=== PATIENT | male | born 1980 | race Caucasian/White ===

== ENCOUNTER → 2019-10-15 12:42 | Outpatient (CLI) | payer BC, SELFPAY ==
--- NOTE | 2019-10-15 12:43 | RAD_ITS ---
STUDY: X-RAY - LEFT KNEE REASON FOR EXAM: Male, 39 years old. Knee pain after numerous injuries TECHNIQUE: 4 view(s) of the knee. COMPARISON: None. FINDINGS: Normal visualized distal femur. Normal visualized proximal tibia and fibula. Normal proximal tibiofibular articulation. Normal medial femorotibial compartment. Normal lateral femorotibial compartment. Normal patellofemoral articulation. The soft tissue structures are unremarkable. RAD/Knee 4 or More Views IMPRESSION: Normal x-ray examination of the knee. Electronically Signed: Carlos Ren, at 15:12 EDT , Service support ,
== END ==
PROVIDERS: PCP Family Medicine; Referring Provider Physician Assistant; Visit Provider Physician Assistant
DX: M25.562 Pain in left knee (principal)
CPT/HCPCS: 73564

== ENCOUNTER → 2020-02-07 | Outpatient (CLI) | payer BC, SELFPAY ==
[2020-02-07 16:48] LABS: Pathologist Comment May follow
[2020-02-07 18:05] LABS: Body Fluid QC Type(s) BF3Q; CRYSTALS, BODY FLUID See PATH REV
[2020-02-07 18:10] LABS: Synovial Fld Mononuclear WBC % 99.2 %; Synovial Fld Polynuclear WBC # 0.004 10^3/uL; Synovial Fld Polynuclear WBC % 0.8 %
[2020-02-07 18:50] LABS: AUTO B FLUID DILUENT BKGD CT WBC <0.1 RBC <0.01 (W<.1,R<.01); Appearance /Synovial Fluid Sl Cl (CLEAR); Color / Synovial Fluid Yellow (Pale Yellow); Source / Synovial Fluid NG; Source- Body Fluid SYNOVIAL
[2020-02-07 18:51] LABS: RBC /Synovial Fluid 9 /mm3 (0)
[2020-02-07 19:10] LABS: Lymph 4 %; Monocyte /Synovial Fluid 93 %; Neutrophil 3 % (0-25)
[2020-02-08 13:58] LABS: Pathologist Review Reviewed
[2020-02-09 13:41] LABS: GLUCOSE, SYNOVIAL FLUID 110 mg/dL (.)
== END | disposition home or self-care (01) ==
PROVIDERS: PCP Family Medicine; Referring Provider Physician Assistant; Visit Provider Physician Assistant
DX: M25.461 Effusion, right knee (principal)
CPT/HCPCS: 82945; 84157; 87070; 87075; 87205; 89050; 89051; 89060

== ENCOUNTER → 2021-01-17 12:52 | Outpatient (CLI) | payer BC, SELFPAY | PROVIDERS: PCP Family Medicine; Referring Provider Family Medicine; Visit Provider Family Medicine | DX: U07.1 COVID-19 (principal) | CPT/HCPCS: 87635; C9803; U0005; U0003 ==

== ENCOUNTER 2021-03-01 16:03 | Outpatient (RCR) | payer BC, SELFPAY ==
--- NOTE | 2021-03-01 17:05 | HP.PTEVAL_ITS ---
Patient's Visit Information FERNANDO TOUSSAINT is a 40 year old M referred to Physical Therapy by EDITH Mina with a diagnosis of L knee patellofemoral symptoms quad weakness.. Date of Evaluation: 03/01/21 Physical Therapist: Vishnu Fry, ROGERIOT, OCS, CSCS - Visit Plan Frequency: 2x /Week Duration: 4-6 Weeks Plan: 2x/week for 4 weeks for: 1. teach home based quad, HS and hip strength and core strength with pics to I. 2. stretch quad(rollout) and HS and teach for HEP. 3. Finish with TENs with MH to monitor effectiveness for possible home unit. Encourage activitiy modification to limit pain. - Subjective L knee scoped twice and fractured femur from bad accident 20 yrs ago. had multiple treatments and cortisone and not feeling much better. Seen Dr. Mathew and had gels from [facility]. Knees pop and crack. Pain is not worsening but I am still in pain. had many MRIs. it grinds on steps and hurts when he tries. Losing cartilage in R knee and none in left knee left. has no muscle tone in either quad. L knee pain 6/10 intermittently and might pop for no reason. R one is not as bad. Got prescription but not sure what it is. Maybe antiinflammatory. Sleep is not great and needs pillow between knees. Employed : 12 hours day in [employer]se[employer] on concrete standing all day [employer]. Some times worse after work. Intermittently bad for days at a time. Enjoys hiking and 4 whjeelers. Basic at home are getting done. 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 No regular knee specific ex. Wears 12 dollar brace. - Pain L knee pain. Pain Intensity (Out of 10): 0 - Objective Walks normal and I into PT. Steps reciprocal with some tightness and noise in L knee up and down. Unable to fucntionally step up with L two at a time. Marching and toe walk and heel walk and butt kicks without problems today. patella and joint line not tender. Unable to do normal LAQ on L as he has to ext rotate hip and shift pelvis to avoid pain stabbing in front o medial L knee. patella move well. Quad muscle tight L >R, HS mod tight B at -35 90/90 test. reflexes 2/3 patella and achilles B. Sensation LE WNL to gross light touch. Strength hips: R 4 and L abd 3=, ext 3 adn flexion 4. knee ext L 3+ and R 4+, HSC L 4 and R 4+. ankles 5/5. - bounce home, - varus and valgus, + patellar grind. - pivot shift. - Balance/Special Test Scores Lower Extremity Functional Score: 19 - Goals Goal 1:: i approp jail strength adn stretching for legs to minimzie pain. Goal Time Frame: 4-6 Weeks Goal 2:: Pt know benefits of TENs unit for pain control Goal Time Frame: 4-6 Weeks Goal 3:: Sit and straighten knee without pain Goal Time Frame: 4-6 Weeks Goal 4:: Pt feel 50% better inoverall pain levels and function. Goal Time Frame: 4-6 Weeks - Rehabilitation Potential Physical Therapy Diagnosis: L knee pain with cartilage problems and weakness causing functional deficits. Rehabilitation Potential: Questionable - Anticipated Interventions Patient/Client Instruction: Educate patient on: Condition, Plan of Care For the Purpose of:: To decrease pain, To increase ROM, To improve muscle performance and motor function, To increase tolerance to activity/condition/position Therapeutic Exercise to Include: Strength training, Flexibilty training, Passive ROM, Active ROM For the Purpose of:: To decrease pain, To increase ROM, To improve muscle performance and motor function, To increase tolerance to activity/condition/position TENS: Yes Cryotherapy (ice pack, ice massage): Yes For the Purpose of:: To decrease pain Thank you for the opportunity to evaluate your patient. For Medicare and Medicare HMO plans, please review the plan of care and approve it. It will need to be FAXED BACK to us at [phone] for Medicare purposes. For Medicare only, by signing this I certify the plan of care. Please let me know if there are questions or concerns regarding this plan of care. Physician Signature: Date:
--- NOTE | 2021-05-16 11:12 | HP.PT.NRP ---
FERNANDO TOUSSAINT was seen in my office for initial evaluation on 03/01/21. The following Plan of Care was established for this patient: Initial Frequency: 2x /Week Initial Duration: 4-6 Weeks Patient/Client Instruction: Educate patient on: Condition, Plan of Care For the Purpose of:: To decrease pain, To increase ROM, To improve muscle performance and motor function, To increase tolerance to activity/condition/position Therapeutic Exercise to Include: Strength training, Flexibilty training, Passive ROM, Active ROM For the Purpose of:: To decrease pain, To increase ROM, To improve muscle performance and motor function, To increase tolerance to activity/condition/position TENS: Yes Cryotherapy (ice pack, ice massage): Yes For the Purpose of:: To decrease pain This patient was last seen in our office 03/01/21. Pertinent comments regarding their Physical therapy will appear below: Pt seen for initial evaluation and POC established. PT did not schedule or attend any further visits. at this point, it has been over two months and I will discontinue due to nonattendance. At this point I will be discontinuing this patient from physical therapy. I would be happy to see this patient again in the future if found appropriate by the physician. Thank you! Vishnu Fry, DPT, OCS, CSCS Balance/Gait/Functional tests - Balance/Special Test Scores Lower Extremity Functional Score: 19
== END 2021-03-01 19:00 | disposition home or self-care (01) ==
LOC: PT 16:03
PROVIDERS: PCP Family Medicine; Referring Provider Physician Assistant; Visit Provider Physician Assistant
DX: R53.1 Weakness (principal); M22.2X2 Patellofemoral disorders, left knee
CPT/HCPCS: 97162

== ENCOUNTER → 2021-08-10 | Outpatient (CLI) | payer BC, SELFPAY ==
--- NOTE | 2021-08-10 13:25 | RAD_ITS ---
STUDY: X-RAY - ORBITS REASON FOR EXAM: Male, 41 years old. PRE MRI TECHNIQUE: 2 view(s) of the orbits were obtained. COMPARISON: None. FINDINGS: Normal bilateral orbits without a metallic orbital foreign body. Normal visualized facial bones. Normal paranasal sinuses. The soft tissue structures are unremarkable. RAD/Orbits for Foreign Body IMPRESSION: No demonstrated metallic orbital foreign body. The patient is cleared for an MRI examination. Electronically Signed: Carlos Ren MD at 14:33 EDT ,
== END | disposition home or self-care (01) ==
LOC: RAD 13:23
PROVIDERS: PCP Family Medicine; Referring Provider Orthopaedic Surgery; Visit Provider Orthopaedic Surgery
DX: Z01.818 Encounter for other preprocedural examination (principal)
CPT/HCPCS: 70030

== ENCOUNTER → 2021-08-29 | Outpatient (CLI) | payer BC, SELFPAY ==
[2021-08-29 11:21] LABS: Erythrocyte Sedimentation Rate 2 mm/hr (0-20)
[2021-08-29 11:22] LABS: Hematocrit 45.2 % (40-54); Hemoglobin 15.3 g/dL (13.0-16.5); Mean Corp Hgb Conc 33.8 g/dL (32-36); Mean Corpuscular Hgb 30.4 pg (27.0-32.0); Mean Corpuscular Volume 89.9 fL (80-94); Mean Platelet Vol. 9.3 fl (6.2-12.0); Platelet Count 390 K/mm3 (150-450); RBC Distribution Width CV 12.5 % (11.6-14.6); Red Blood Count 5.03 M/mm3 (4.6-6.2); White Blood Count 6.3 K/mm3 (4.4-11.0)
[2021-08-29 11:49] LABS: CRP < 2.90 mg/L (0.0-3.0)
[2021-08-29 11:53] LABS: Rheumatoid Factor < 10.0 IU/mL (<15)
[2021-08-31 08:29] LABS: ANTINUCLEAR ANTIBODIES DIRECT Negative (Negative)
[2021-09-07 17:27] LABS: HLA B27 Positive (.)
== END | disposition home or self-care (01) ==
LOC: LAB 09:49
PROVIDERS: PCP Family Medicine; Visit Provider Orthopaedic Surgery
DX: M17.12 Unilateral primary osteoarthritis, left knee (principal); M06.8A Other specified rheumatoid arthritis, other specified site; M25.562 Pain in left knee
CPT/HCPCS: 36415; 81374; 85027; 85652; 86038; 86140; 86431

== ENCOUNTER → 2021-10-10 | Outpatient (CLI) | payer BC, SELFPAY ==
[2021-10-10 18:04] LABS: Absolute Lymphocyte Count 2.39 X10^3/uL (0.83-4.51); Absolute Neutrophil Count 5.7 X10^3/uL (2.0-7.7); Basophil# 0.05 X10^3/uL; Basophil% 0.6 % (0-1); Eosinophil# 0.11 X10^3/uL; Eosinophils% 1.2 % (0-5); Hematocrit 43.6 % (40-54); Hemoglobin 15.2 g/dL (13.0-16.5); Lymphocyte # 2.39 X10^3/ul (0.83-4.51); Lymphocyte % 26.5 % (19-41); Mean Corp Hgb Conc 34.9 g/dL (32-36); Mean Corpuscular Hgb 30.6 pg (27.0-32.0); Mean Corpuscular Volume 87.9 fL (80-94); Mean Platelet Vol. 9.7 fl (6.2-12.0); Monocyte# 0.72 X10^3/uL; NRBC Flagged by Analyzer 0 % (0-5); Neutrophil # 5.74 X10^3/uL (2.7-7.7); Neutrophil % 63.5 % (47-70); Platelet Count 376 K/mm3 (150-450); RBC Distribution Width SD 38.8 fl (35.1-43.9); Red Blood Count 4.96 M/mm3 (4.6-6.2)
[2021-10-10 18:40] LABS: ALB/GLOB Ratio 1.1 RATIO (0.9-2.4); AST(SGOT) 12 U/L (15-37); Alanine Aminotransfer ALT/SGPT 29 U/L (16-61); Alkaline Phosphatase 57 U/L (45-117); Anion Gap 7 (5-15); BUN 8 mg/dL (7-18); BUN/Creat Ratio 9.4 RATIO (10-20); Calcium,Total 9.1 mg/dL (8.5-10.1); Chloride 106 mmol/L (98-107); Creatinine, Serum 0.85 mg/dL (0.70-1.30); EST Glomerular Filtration Rate 105 mL/min (>60); Est Glom Filt Rate - Afr Amer 127 mL/min (>60); Globulin 3.6 g/dL (2.2-4.2); Glucose 108 mg/dL (74-106); Potassium 3.1 mmol/L (3.5-5.1); Protein, Total 7.6 g/dL (6.4-8.2); Rheumatoid Factor < 10.0 IU/mL (<15); Sodium Level 140 mmol/L (136-145)
[2021-10-11 08:54] LABS: Hepatitis B Surface Antibody Non-Reactive; Hepatitis B Surface Antigen Non-Reactive (Nonreactive); Hepatitis C Antibody Non-Reactive (Nonreactive)
[2021-10-13 08:22] LABS: CCP IgG Antibodies 6 units (0-19)
== END | disposition home or self-care (01) ==
LOC: MTLAB 15:46
PROVIDERS: PCP Family Medicine; Referring Provider Internal Medicine Rheumatology; Visit Provider Internal Medicine Rheumatology
DX: M06.4 Inflammatory polyarthropathy (principal); M17.12 Unilateral primary osteoarthritis, left knee; I10 Essential (primary) hypertension; G43.909 Migraine, unspecified, not intractable, without status migrainosus; J30.2 Other seasonal allergic rhinitis; F41.9 Anxiety disorder, unspecified
CPT/HCPCS: 36415; 80053; 85025; 86200; 86431; 86706; 86803; 87340

== ENCOUNTER → 2022-05-01 | Outpatient (CLI) | payer OTHER, SELFPAY ==
[2022-05-01 18:45] LABS: HIV - WCH Non-Reactive (Nonreactive); Syphilis Antibodies Non-reactive
[2022-05-03 05:07] LABS: HEPATITIS B SURFACE AG Negative (Negative); Hep C Antibodies 0.1 s/co ratio (0.0-0.9); Hepatitis A IgM Antibody Negative (Negative); Hepatitis B Core AB IgM Negative (Negative)
== END | disposition home or self-care (01) ==
LOC: LAB 17:00
PROVIDERS: PCP Family Medicine; Visit Provider Nurse Practitioner Family
DX: Z11.3 Encounter for screening for infections with a predominantly sexual mode of transmission (principal)
CPT/HCPCS: 36415; 80074; 86703; 86780

== ENCOUNTER 2022-05-31 17:08 | Emergency (ER) | payer OTHER, SELFPAY ==
[2022-05-31 17:10] VITALS: BP 164/114; PULSE 87; TEMP 36.8; O2SAT 98; BMI 24.4
--- NOTE | 2022-05-31 18:59 | US_ITS ---
STUDY: SCROTUM ULTRASOUND REASON FOR EXAM: Male, 41 years old. Pain/ swelling on rt after recent vasectomy TECHNIQUE: Ultrasound evaluation of the scrotum was performed with color Doppler and static alfredo-scale imaging. COMPARISON: None. FINDINGS: RIGHT TESTICLE INTRATESTICULAR: There is a normal size of the right testicle. The right testicle measures 5x3.7 cm. There is a homogenous echotexture. There is normal arterial and normal venous vascularity. There is no demonstrated right testicular mass or cyst. EXTRATESTICULAR: The epididymis is normal in size. The epididymis head measures 1.5x1.2 cm. There is normal vascularity of the epididymis. There is no demonstrated epididymal cystic structure. There is a moderate size hydrocele. There is no demonstrated varicocele. There are dilated tubular structures near the right testicle which is likely a dilated vas deferens. LEFT TESTICLE INTRATESTICULAR: There is diffuse enlargement of the left testicle. The left testicle measures 5.1x2.8 cm. There is a homogenous echotexture. There is normal arterial and normal venous vascularity. There is no demonstrated left testicular mass or cyst. EXTRATESTICULAR: The epididymis is normal in size. The epididymis head measures .8x.5 cm. There is normal vascularity of the epididymis. There is no demonstrated epididymal cystic structure. There is no demonstrated hydrocele. There is no demonstrated varicocele. There is no demonstrated extratesticular mass or cyst. US/Testicular with Arterial Flow IMPRESSION: There are no acute findings of the bilateral testicles without evidence for torsion. There are dilated tubular structures near the right testicle which is likely a dilated vas deferens. Moderate right hydrocele. Electronically Signed: Mc Johnson MD at 21:13 EST Reading Location ID and State: [facility] / [place] , Service support ,
[2022-05-31] MEDS: Morphine 4 MG/ML Syringe IV (19:21)
[2022-05-31 19:28] LABS: Absolute Lymphocyte Count 2.13 X10^3/uL (0.83-4.51); Absolute Neutrophil Count 5.8 X10^3/uL (2.0-7.7); Basophil# 0.08 X10^3/uL; Basophil% 0.8 % (0-1); Hematocrit 42.7 % (40-54); Hemoglobin 14.2 g/dL (13.0-16.5); Lymphocyte # 2.13 X10^3/ul (0.83-4.51); Lymphocyte % 21.5 % (19-41); Mean Corp Hgb Conc 33.3 g/dL (32-36); Mean Corpuscular Hgb 30.2 pg (27.0-32.0); Mean Corpuscular Volume 90.9 fL (80-94); Monocyte# 1.63 X10^3/uL; Monocyte% 16.5 % (0-10); NRBC Flagged by Analyzer 0 % (0-5); Neutrophil # 5.78 X10^3/uL (2.7-7.7); Neutrophil % 58.5 % (47-70); POSITIVE DIFFERENTIAL YES; Platelet Count 397 K/mm3 (150-450); RBC Distribution Width CV 12.4 % (11.6-14.6); RBC Distribution Width SD 41.1 fl (35.1-43.9); White Blood Count 9.9 K/mm3 (4.4-11.0)
[2022-05-31 19:32] LABS: Differential Indicated SCAN CRITERIA MET
[2022-05-31 19:42] LABS: Anion Gap 6 (5-15); BUN 11 mg/dL (7-18); BUN/Creat Ratio 13.8 RATIO (10-20); Chloride 105 mmol/L (98-107); EST Glomerular Filtration Rate 113 mL/min (>60); Est Glom Filt Rate - Afr Amer 137 mL/min (>60); Estimated Creatinine Clearance 133.38 ml/min; Glucose 107 mg/dL (74-106); Potassium 3.6 mmol/L (3.5-5.1); Sodium Level 138 mmol/L (136-145)
[2022-05-31 19:49] LABS: Bacteria 0 SEEN /hpf (None Seen); Mucous, Urine 0 SEEN /hpf (<or=2+); Red Blood Cells-Urine 0 SEEN /hpf (0-5); Squamous Epithelial Cells - UA 0 SEEN /hpf (0-5); White Blood Cells 0 SEEN /hpf (0-5)
[2022-05-31 19:55] LABS: Differential Comment SCANNED
[2022-05-31 20:14] LABS: Color, Urine Yellow (Yellow); Glucose, Dipstick Normal (Normal); Ketone-Dipstick Negative (Negative); Leukocyte Esterase-Dipstick Negative /ul (Negative); Nitrite-Dipstick Negative (Negative); Occult Blood-Urine Negative /ul (Negative); Protein-Dipstick Negative (Negative); Specific Gravity, Urine 1.015 (1.002-1.030); Urine Bilirubin Dipstick Negative (Negative); Urine Clarity Clear (Clear); Urine Urobilinogen Normal (Normal); Urine pH 6.5 (5.0 - 8.0)
--- NOTE | 2022-05-31 22:10 | EDS_ITS ---
HPI History of Present Illness Chief Complaint: General Illness Informant: patient Onset/Context/Timing Onset: Days (4) Context: Gradual Onset Timing: Continuous Quality: Sharp Location: Right testicle and right groin Worsened by: Palpation and certain movements Relieved by: Nothing Narrative Narrative: Patient presents with right testicular pain that has been getting progressively worse over the past 4 days. Patient states he is currently on an antibiotic for an infection. Patient had a recent facetectomy on 05/09/2022. Patient states he is taking an antibiotic 4 times daily for the past 2 days. Patient denies any discharge or drainage. Patient describes his pain as sharp. Patient states it is constant. Patient states it is in the right testicle and right groin area. Patient denies any fevers or chills. Patient denies any dysuria or hematuria. PFSH PFSH Home Medications acetaminophen 325 mg tablet (Tylenol) 325 mg PO ONCE PRN 06/04/17 [History Last Taken Unknown] calcium carbonate 500 mg calcium (1,250 mg) chewable tablet (Calcium 500) 500 mg PO BID 06/04/17 [History Last Taken Unknown] multivitamin 1 tab PO QAM 06/04/17 [History Last Taken Unknown] meloxicam 15 mg tablet 15 mg PO DAILY #30 tabs 02/23/21 [Rx Last Taken Unknown] amoxicillin 875 mg-potassium clavulanate 125 mg tablet 875 mg PO Q12H #20 TABLETS 05/31/22 [Rx Last Taken Unknown] oxycodone-acetaminophen 5 mg-325 mg tablet 1 tab PO Q6H PRN PRN Pain 3 days #12 TABLETS 05/31/22 [Rx Last Taken Unknown] Allergy/AdvReac Type Severity Reaction Status Date / Time No Known Allergies Allergy Verified 05/31/22 17:13 Family History Father Diabetes Cirrhosis of liver Surgical History (Updated 05/31/22 @ 22:[address] Vishnu Shields DO) History of tonsillectomy Hx of vasectomy S/P left knee arthroscopy Social History Smoking Status: Never smoker ROS ROS ED Constitutional Constitutional ED: Denies chills or fever(s) Eyes Eyes: Denies blurry vision or change in vision ENT ENT ED: Denies rhinorrhea or sore throat Cardiovascular Cardiovascular: Denies chest pain or palpitations Respiratory/Chest Respiratory/Chest: Denies cough or dyspnea Gastrointestinal Gastrointestinal: Denies nausea or vomiting Genitourinary Genitourinary ED: Denies dysuria or hematuria Musculoskeletal Musculoskeletal: Denies back pain or neck pain Integumentary Reports rash; Denies Abrasions Neurologic Neurologic: Denies headache(s) or weakness Allergic/Immunologic Allergic/Immunologic ED: Denies mouth swelling or urticaria EXAM Physical Exam Const Vital Signs: 05/31/22 17:10 05/31/22 18:41 Temperature 98.2 F Temperature Source Temporal Pulse Rate 87 Respiratory Effort Normal Non-Labored Blood Pressure 164/114 H Blood Pressure Mean 130 Pulse Ox 98 Oxygen Delivery Method Room Air Positive well nourished and well developed General Appearance ED: well developed HEENT Reports moist mucous membranes Neck supple and no JVD Resp normal respiratory effort and clear to auscultation bilaterally Cardio regular rate, regular rhythm and no murmurs GI normal to inspection, nondistended, normoactive bowel sounds and non-tender Palpation: soft Narrative: There is tenderness, erythema, and induration over the right scrotal wall. There is minimal tenderness over the right testicle. There is no tenderness on the left side of the scrotum or left testicle. There is no inguinal hernia noted. There is no discharge or drainage. There is no fluctuance or evidence of any abscess. Extremity normal to inspection General Extremety ED: Negative for edema or tenderness General Extremity: Negative for edema Neuro oriented x3, CN's II-XII intact bilaterally and no sensory deficits noted Sensorium / Orientation: alert Motor Exam: strength 5/5 throughout Psych mental status grossly normal MDM MDM MDM Narrative Medical decision making narrative: Differential diagnosis includes cellulitis, Ursula's gangrene, testicular torsion, and abscess. CBC will be obtained to assess for leukocytosis and anemia. Basic metabolic profile will be obtained to assess for renal function and electrolyte abnormality. Urinalysis will be obtained to assess for urinary tract infection. Ultrasound of the testicles and scrotum will be obtained to assess for testicular torsion, mass, and abscess. Lab Data Attestation: I reviewed the patient's lab results. Lab results narrative: CBC was reviewed and was within normal limits. Basic metabolic profile was reviewed and was within normal limits. Urinalysis was reviewed. There is no evidence of hematuria or urinary tract infection. Labs: Laboratory Results - last 24 hr 05/31/22 05/31/22 05/31/22 19:10 19:10 19:37 WBC 9.9 RBC 4.70 Hgb 14.2 Hct 42.7 MCV 90.9 MCH 30.2 MCHC 33.3 RDW Std Deviation 41.1 RDW Coeff of Irish 12.4 Plt Count 397 MPV 9.0 Immature Gran % (Auto) 0.700 Neut % (Auto) 58.5 Lymph % (Auto) 21.5 [place] % (Auto) 16.5 H Eos % (Auto) 2.0 Baso % (Auto) 0.8 Absolute Neuts (auto) 5.8 Absolute Lymphs (auto) 2.13 Nucleated RBC % 0 Differential Comment SCANNED Sodium 138 Potassium 3.6 Chloride 105 Carbon Dioxide 27.0 Anion Gap 6 BUN 11 Creatinine 0.80 Estim Creat Clear Calc 133.38 Est GFR (MDRD) Af Amer 137 Est GFR (MDRD) Non-Af 113 BUN/Creatinine Ratio 13.8 Glucose 107 H Calcium 9.0 Urine Color Yellow Urine Clarity Clear Urine pH 6.5 Ur Specific [place] 1.015 Urine Protein Negative Urine Glucose (UA) Normal Urine Ketones Negative Urine Occult Blood Negative Urine Nitrite Negative Urine Bilirubin Negative Urine Urobilinogen Normal Ur Leukocyte Esterase Negative Urine RBC 0 SEEN Urine WBC 0 SEEN Ur Squamous Epith Cells 0 SEEN Urine Bacteria 0 SEEN Urine Mucus 0 SEEN Radiography Diagnostic Testing: Clinical Impression(s) from Imaging Studies Testicular Ultrasound 05/31/22 18:59 IMPRESSION: There are no acute findings of the bilateral testicles without evidence for torsion. There are dilated tubular structures near the right testicle which is likely a dilated vas deferens. Moderate right hydrocele. Electronically Signed: Mc Johnson MD at 21:13 EST , Testicular ultrasound was there is no evidence of testicular torsion. There is no evidence of any abscess. There is a moderate right hydrocele. There are d ilated tubular structures near the right testicle which is likely a dilated vas deferens. This is likely from the recent vasectomy. This was interpreted by the radiologist and was also reviewed by myself. Treatment and Re-Evaluation :: Patient was given a dose of morphine here. Patient was given a dose of Unasyn here. Patient is feeling better on reevaluation. Patient was instructed to stop taking his current antibiotic. Patient was given a prescription for Augmentin to take instead. Patient was also given a prescription for a short course of Percocet. Patient was instructed to follow-up with Dr. Garvin from urology in 3 to 5 days. Patient was instructed to return if worse in any way. Patient understood and was agreeable with the plan. All questions were answered. Discharge Plan Triage Chief Complaint: General Illness ED Provider: Vishnu Shields Dx/Rx/DC Orders Clinical Impression: Cellulitis of scrotum, Hydrocele, right Instructions: ED Cellulitis Prescriptions: New oxycodone-acetaminophen [oxycodone-acetaminophen] 5-325 mg tablet 1 tab PO Q6H PRN PRN (Reason: Pain) 3 Days Qty: 12 0RF amoxicillin-pot clavulanate [amoxicillin-pot clavulanate] 875-125 mg tablet 875 mg PO Q12H Qty: 20 0RF No Action multivitamin tablet 1 tab PO QAM calcium carbonate [Calcium 500] 500 mg calcium (1,250 mg) tablet,chewable 500 mg PO BID acetaminophen [Tylenol] 325 mg tablet 325 mg PO ONCE PRN meloxicam 15 mg tablet 15 mg PO DAILY Qty: 30 0RF Primary Care Provider: Levar Burger Referrals: Mauricio Garvin MD [Med Staff - Active Staff] - 3-5 Days Levar Burger MD [Primary Care Provider] - Disposition Disposition: Home, Self Care
[2022-05-31 22:31] VITALS: PULSE 72; RESP 18; O2SAT 98
== END 2022-05-31 22:31 | disposition home or self-care (01) ==
PROVIDERS: Emergency Provider Emergency Medicine; PCP Family Medicine; Visit Provider Emergency Medicine
DX: N49.2 Inflammatory disorders of scrotum (principal); N43.3 Hydrocele, unspecified
CPT/HCPCS: 76870; 80048; 81001; 85025; 87040; 93976; 96365; 96375; 99283; J7050; A4216; J0295